=== PATIENT | female | born 1985 | race Caucasian/White ===

== ENCOUNTER → 2019-02-01 13:44 | Outpatient (CLI) | payer OTHER, SELFPAY ==
--- NOTE | 2019-02-01 13:48 | US_ITS ---
US gallbladder Ordering Physician: Terry Bush MD Patient Age: 33 years: Female HISTORY: ITS.REASON: RUQ PAIN TECHNIQUE: Ultrasound right upper quadrant COMPARISON : FINDINGS Pancreas. Unremarkable. The head body and medial tail of pancreas well visualized and appears satisfactory Liver. No focal lesions. No biliary ductal dilatation. Portal vein and hepatic veins survey unremarkable. Gallbladder. Multiple gallstones. These measure generally 5-6 mm in size. No wall thickening. Common duct appears normal. 3 mm at hilum of the liver Right kidney appears normal measuring 8.3 cm in length. No hydronephrosis nor mass. IMPRESSION: Cholelithiasis Multiple gallstones along the dependent portion gallbladder Common duct normal
== END ==
PROVIDERS: PCP Internal Medicine Adolescent Medicine; Visit Provider Internal Medicine Adolescent Medicine
DX: R10.11 Right upper quadrant pain (principal)
CPT/HCPCS: 76705

== ENCOUNTER → 2019-11-08 07:35 | Outpatient (CLI) | payer OTHER, SELFPAY ==
[2019-11-08 09:11] LABS: Basophils # 0.1 K/mm3 (0-0.2); Basophils % 1.1 % (0.1-2.0); Eosinophils # 0.4 K/mm3 (0.0-0.4); Eosinophils % 7.2 % (0.1-12.0); Hematocrit 37.1 % (37.0-47.0); Hemoglobin 11.8 g/dL (12.2-16.2); Lymphocytes # 1.7 K/mm3 (0.7-4.5); Lymphocytes % 34.9 % (10-50); Mean Corpuscular Hemoglobin 28.9 pg (27.0-31.2); Mean Corpuscular Volume 90.5 fl (81-99); Mean Platelet Volume 7.7 fl (7.4-10.4); Monocytes # 0.3 K/mm3 (0.1-1.0); Neutrophils # 2.6 K/mm3 (1.8-7.8); Neutrophils % 51.7 % (37.0-80.0); Platelet Count 233 K/mm3 (142-424); Red Cell Distribution Width 12.3 % (11.5-17.5)
[2019-11-08 09:57] LABS: Chloride 104 mmol/L (98-107); Sodium 140 mmol/L (136-145)
[2019-11-08 10:00] LABS: Alanine Aminotransferase 18 U/L (12-78); Aspartate Amino Transferase 27 U/L (14-36); Bilirubin,Total 0.4 mg/dl (0.2-1.3); Blood Urea Nitrogen 12 mg/dl (7-17); Carbon Dioxide 25 mmol/L (22.0-30.0); Cholesterol 197 mg/dl (140-200); Estimated Glomerular Filt Rate 82 ml/min (>60); GFR (African American) 99 ML/MIN (>60); Triglycerides 61 mg/dl (30-150); VLDL Cholesterol 12 mg/dL (0-40)
[2019-11-08 10:01] LABS: Albumin Level 4.3 g/dl (3.5-5.0); Albumin/Globulin Ratio 1.5 (1.1-1.8); Alkaline Phosphatase 45 U/L (38-126); Calcium 9.3 mg/dl (8.4-10.2); Chol/HDL Ratio 2.8 (1-3.5); Globulin 2.9 g/dL (1.3-3.2); Glucose 84 mg/dl (74-100); HDL Cholesterol 71 mg/dl (40-60); Total Protein,Serum 7.2 g/dl (6.3-8.2)
[2019-11-08 10:13] LABS: Direct LDL Cholesterol 103.01 mg/dL (100-129)
[2019-11-08 10:16] LABS: Free T4 (Free Thyroxine) 0.73 ng/dl (0.78-2.19)
[2019-11-08 10:30] LABS: Thyroid Stimulating Hormone 2.85 uIU/mL (0.465-4.68)
[2019-11-09 06:00] LABS: Thyroid Peroxidase Antibodies <9 IU/mL (0-34)
[2019-11-09 08:32] LABS: Estradiol 49.4 pg/mL (.); Progesterone 0.2 ng/mL (.); Triiodothyronine (T3) Free 2.7 pg/mL (2.0-4.4); Vitamin D 25 Hydroxy 18.3 ng/mL (30.0-100.0)
[2019-11-09 11:34] LABS: Vitamin B12 696 pg/mL (232-1245)
[2019-11-12 11:28] LABS: Thyroglobulin IMA CHARGE YES; Thyroglobulin Level <1.0 IU/mL (0.0-0.9)
[2019-11-13 02:08] LABS: Testosterone, Total, LC/MS 23.2 ng/dL (10.0-55.0)
[2019-11-13 10:56] LABS: Testosterone,Free 2.1 pg/mL (0.0-4.2)
[2019-11-13 16:12] LABS: Anti Mullerian Hormone (AMH) 1.65 ng/mL (.)
== END ==
PROVIDERS: Visit Provider Nurse Practitioner Adult Health
DX: E34.9 Endocrine disorder, unspecified (principal); F41.1 Generalized anxiety disorder; F32.9 Major depressive disorder, single episode, unspecified; J30.9 Allergic rhinitis, unspecified; R53.83 Other fatigue; D64.9 Anemia, unspecified; N92.0 Excessive and frequent menstruation with regular cycle; R68.89 Other general symptoms and signs; K59.00 Constipation, unspecified; E66.3 Overweight; E55.9 Vitamin D deficiency, unspecified; Z13.29 Encounter for screening for other suspected endocrine disorder; Z13.220 Encounter for screening for lipoid disorders
CPT/HCPCS: 36415; 80053; 80061; 82397; 82607; 82652; 82670; 84144; 84402; 84403; 84439; 84443; 84481; 85025; 86376; 86800

== ENCOUNTER 2019-11-14 08:00 | Outpatient (RCR) | payer OTHER, SELFPAY ==
--- NOTE | 2019-11-12 09:18 | HMH.PTOPEV ---
PT Outpatient Evaluation Rehab PT Outpatient Evaluation Start: 11/12/19 08:13 Freq: Status: Active Protocol: Document 11/12/19 08:29 ARLENE (Rec: 11/12/19 09:18 DEVANJOSEPHINE [id number]) Electronically Signed By Jaime Cerrato PT 11/12/19 08:29 Outpatient Therapy Subjective History Subjective History This is the initial Physical Therapy evaluation for Alondra Mars. Pt is a 34 y/o femle referred to PT for c /o R knee pain. Pt reports insidious onset of pain ~ 2 years ago while working out . Pt reports pain is intermittant and only occurs mostly w/ weightlifting exercises. Pt reports she notices it w/ OKC exercises or weighted squats, stairs and standing from low stool do not bother it. Chief Complaint Pain Symptom Type Ache,Throb,Sharp Symptoms Relieved By Rest/Positioning Symptoms Aggravated By Physical Activity Prior Functional Limitations None Current Functional Limitations Squatting,Recreation Activity Symptom Description Intermittent Level of pain today (0-10) 0 Pain scale - at its best (0-10) 0 Pain scale - at its worst (0-10) 5 Lumbopelvic Eval Special Tests Hip Navi (ALANNA) Test Negative Right,Positive Left Hip/Knee Eval Gait Observation General Gait Pattern Observation No Deviations/Normal Assistive Device Assistive Devices None / NA Palpation Tenderness right Knee Palpation Finding Tenderness Knee Palpation Overall Comment TTP post patella MMT Hip Flexion Strength Grade 5 Normal Hip Abduction Strength Grade 5 Normal Hip Adduction Strength Grade 5 Normal Hip External Rotation Strength Grade 5 Normal Hip Internal Rotation Strength Grade 5 Normal Knee Extension Strength Grade 5 Normal Knee Flexion Strength Grade 5 Normal ROM left Hip External Rotation Active Range of 15 Motion (degrees) right Hip External Rotation Active Range of 45 Motion (degrees) Hip ROM Limitations Soft Tissue Tightness Knee ROM Reason Not Measured Within Functional Limits Special Tests Hip Scouring (Quadrant) Test Negative Left,Negative Right Knee Apprehension Test Negative Left,Negative Right Knee Apley Compression Test Negative Left,Negative Right Knee Anterior Drawer Test Negative Left,Negative Right Knee Anterior Alfredo Test Negative Left,Negative Right Knee Valgus Stres
== END 2019-11-14 09:00 | disposition home or self-care (01) ==
LOC: PT 08:00
PROVIDERS: PCP Internal Medicine Adolescent Medicine; Visit Provider Nurse Practitioner Family
DX: M25.561 Pain in right knee (principal)
CPT/HCPCS: 97110; 97163

== ENCOUNTER → 2020-10-30 10:48 | Outpatient (CLI) | payer OTHER, SELFPAY ==
[2020-10-30 11:20] LABS: Basophils % 0.2 % (0.1-2.0); Eosinophils # 0.1 K/mm3 (0.0-0.4); Eosinophils % 1.3 % (0.1-12.0); Hemoglobin 13.1 g/dL (12.2-16.2); Lymphocytes # 1.6 K/mm3 (0.7-4.5); Lymphocytes % 19.7 % (10-50); Mean Corpuscular HGB Conc 32.1 g/dL (31.8-35.4); Mean Corpuscular Hemoglobin 29.8 pg (27.0-31.2); Mean Corpuscular Volume 92.9 fl (81-99); Mean Platelet Volume 7.4 fl (7.4-10.4); Monocytes # 0.3 K/mm3 (0.1-1.0); Monocytes % 4.1 % (1.7-9.3); Neutrophils # 6.2 K/mm3 (1.8-7.8); Neutrophils % 74.8 % (37.0-80.0); Platelet Count 268 K/mm3 (142-424); Red Blood Count 4.41 M/mm3 (4.20-5.40); Red Cell Distribution Width 12.3 % (11.5-17.5); White Blood Count 8.2 K/mm3 (4.8-10.8)
[2020-10-30 13:34] LABS: Chloride 105 mmol/L (98-107); Sodium 140 mmol/L (136-145)
[2020-10-30 13:35] LABS: Potassium 4.3 mmoL/L (3.5-5.1)
[2020-10-30 13:37] LABS: Alanine Aminotransferase 21 U/L (12-78); Albumin Level 4.6 g/dl (3.5-5.0); Albumin/Globulin Ratio 1.3 (1.1-1.8); Alkaline Phosphatase 71 U/L (38-126); Anion Gap 11.3 mEq/L (5-15); Aspartate Amino Transferase 25 U/L (14-36); Bilirubin,Total 0.4 mg/dl (0.2-1.3); Blood Urea Nitrogen 13 mg/dl (7-17); Calcium 9.7 mg/dl (8.4-10.2); Carbon Dioxide 28 mmol/L (22.0-30.0); Estimated Glomerular Filt Rate 82 ml/min (>60); GFR (African American) 99 ML/MIN (>60); Globulin 3.5 g/dL (1.3-3.2); Glucose 73 mg/dl (74-100); Total Protein,Serum 8.1 g/dl (6.3-8.2)
== END ==
PROVIDERS: Visit Provider Internal Medicine Adolescent Medicine
DX: T78.40XA Allergy, unspecified, initial encounter (principal)
CPT/HCPCS: 36415; 80053; 83520; 85025

== ENCOUNTER 2021-03-21 06:52 | Emergency (ER) | payer OTHER, SELFPAY ==
[2021-03-21 06:54] VITALS: BP 121/85; PULSE 69; RESP 18; TEMP 36.9; O2SAT 97; BMI 23.9
[2021-03-21 06:57] VITALS: BMI 18.6
--- NOTE | 2021-03-21 06:58 | CT_ITS ---
PROCEDURE INFORMATION: Exam: CT Abdomen And Pelvis With Contrast Exam date and time: 03/21/2021 6:58 AM Age: 36 years old Clinical indication: Abdominal pain; Localized; Patient HX: Upper abdomen pain since last night , PT knows she has gallstones; Additional info: Upper abd pain TECHNIQUE: Imaging protocol: Computed tomography of the abdomen and pelvis with contrast. Radiation optimization: All CT scans at this facility use at least one of these dose optimization techniques: automated exposure control; mA and/or kV adjustment per patient size (includes targeted exams where dose is matched to clinical indication); or iterative reconstruction. Contrast material: ISOVUE; Contrast volume: 75 ml; Contrast route: IV; Other contrast: Oral; COMPARISON: GB US gallbladder 02/01/2019 3:19 PM FINDINGS: Pleural spaces: No acute airspace or pleural disease. Liver: No focal hepatic mass. Gallbladder and bile ducts: Cholelithiasis. No biliary ductal dilatation. Pancreas: Pancreatic fullness, without focal mass or ductal dilatation. Spleen: No splenomegaly. Adrenal glands: Unremarkable adrenals. Kidneys and ureters: Normal renal morphology. No hydronephrosis. Stomach and bowel: Mild wall thickening in the nondistended gastric antrum and left colon. Small bowel wall thickening, in a pattern of enteritis. Diverticula, without pericolonic inflammation. Appendix: Appendix not visualized. Intraperitoneal space: Small quantity of intraperitoneal fluid. Vasculature: Normal caliber of the abdominal aorta. Lymph nodes: Subcentimeter lymph nodes. Urinary bladder: Normal bladder morphology. Reproductive: Endocervical air. Bones/joints: Well corticated 12 mm ossific density about the anterolateral aspect of the right acetabulum. Schmorl's nodes and marginal osteophytes. IMPRESSION: 1. Small bowel wall thickening, in a pattern of enteritis. 2. Cholelithiasis. 3. Small quantity of intraperitoneal fluid. 4. Mild wall thickening in the nondistended gastric antrum and left colon.
[2021-03-21 07:21] LABS: Microscopic, Urine URINE MICROSCOPIC (MICROSCOPIC)
[2021-03-21 07:23] LABS: Basophils # 0.1 K/mm3 (0-0.2); Basophils % 0.9 % (0.1-2.0); Eosinophils # 0.2 K/mm3 (0.0-0.4); Eosinophils % 1.6 % (0.1-12.0); Hematocrit 42.4 % (37.0-47.0); Hemoglobin 13.8 g/dL (12.2-16.2); Lymphocytes % 28.8 % (10-50); Mean Corpuscular HGB Conc 32.5 g/dL (31.8-35.4); Mean Corpuscular Hemoglobin 28.4 pg (27.0-31.2); Mean Corpuscular Volume 87.5 fl (81-99); Mean Platelet Volume 7.3 fl (7.4-10.4); Monocytes # 0.4 K/mm3 (0.1-1.0); Monocytes % 3.9 % (1.7-9.3); Neutrophils # 6.7 K/mm3 (1.8-7.8); Neutrophils % 64.8 % (37.0-80.0); Platelet Count 351 K/mm3 (142-424); Red Blood Count 4.84 M/mm3 (4.20-5.40); Red Cell Distribution Width 12.6 % (11.5-17.5); White Blood Count 10.4 K/mm3 (4.8-10.8)
[2021-03-21 07:23] LABS: Appearance,Urine TURBID (Clear); Bilirubin,Urine Negative (Negative); Blood, Urine 3+ (Negative); Color,Urine ORANGE (Yellow); Glucose,Urine (UA) Negative (Negative); Ketones,Urine Negative (Negative); Leukocyte Esterase,Urine Negative (Negative); Nitrate,Urine Negative (Negative); PH,Urine 7.5 (5.0-8.5); Protein,Urine 1+ (Negative); Urobilinogen,Urine 0.2 EU/dl (0.2)
[2021-03-21 07:27] LABS: Urine Pregnancy, HCG Qual. Negative (Negative)
[2021-03-21 07:31] LABS: Alanine Aminotransferase 27 U/L (12-78); Albumin Level 4.4 g/dl (3.5-5.0); Albumin/Globulin Ratio 1.3 (1.1-1.8); Alkaline Phosphatase 70 U/L (38-126); Amylase 81 U/L (30-110); Anion Gap 13.6 mEq/L (5-15); Aspartate Amino Transferase 30 U/L (14-36); Bilirubin,Total 0.5 mg/dl (0.2-1.3); Blood Urea Nitrogen 12 mg/dl (7-17); Calcium 8.7 mg/dl (8.4-10.2); Carbon Dioxide 29 mmol/L (22.0-30.0); Chloride 99 mmol/L (98-107); Creatinine Clearance Estimated 71 mL/min (50-200); Estimated Glomerular Filt Rate 71 ml/min (>60); GFR (African American) 86 ML/MIN (>60); Globulin 3.3 g/dL (1.3-3.2); Glucose 106 mg/dl (74-100); Lactic Acid 0.8 mmol/L (0.7-2.1); Lipase 105 U/L (23-300); Potassium 3.6 mmoL/L (3.5-5.1); Sodium 138 mmol/L (136-145); Total Protein,Serum 7.7 g/dl (6.3-8.2)
[2021-03-21 07:33] LABS: Amorphous Sediment,Urine 2+ /lpf; RBC,Urine TNTC #/hpf (0-3); Squamous Epithelial Cell,Urine Occasional #/hpf (0-5)
[2021-03-21 07:36] LABS: C-Reactive Protein 1.6 mg/L (0-4)
--- NOTE | 2021-03-21 07:46 | PC.NURSE ---
Radiology notified of patient finishing oral contrast at [id number]
[2021-03-21 07:50] LABS: Erythrocyte Sedimentation Rate 12 mm/hr (0-20)
[2021-03-21 07:54] VITALS: BP 135/71; PULSE 77; RESP 18; O2SAT 98
[2021-03-21 07:54] LABS: Procalcitonin < 0.030 ng/mL (0.0-2.0)
--- NOTE | 2021-03-21 08:21 | HMH.EDABDPAI ---
ED Disposition Clinical Impression: Gastroenteritis Disposition: Home, Self-Care Condition on Discharge: Good Instructions: DI for Acute Abdominal Pain Additional Instructions: Please take medication as prescribed. Please drink plenty of fluids. Please follow-up with the general surgeon for further management of your gallstones. Prescriptions: Ondansetron [Zofran 4mg ODT] 4 mg PO TIDP PRN #8 tab PRN Reason: Nausea Prescription Printed Referrals: Terry Bush MD [Primary Care Provider] - Mark Bell MD [Staff Physician] - - Critical Care Critical Care Time: No Attestation: On 03/21/21, the high probability of a clinically significant, sudden or life threatening deterioration of the following system(s) required my full and direct attention, intervention and personal management. The time I documented below is in addition to time spent performing reported procedures but includes the following listed in this critical care notation. Medical Decision Making - Medical Records Medical records reviewed: Yes: I reviewed the patient's medical records. - Raymundo Inquiry Pt receiving controlled substance: No Vital Signs: 03/21/21 06:54 03/21/21 07:54 Temperature 98.4 F Temperature Source Oral Pulse Rate 77 Pulse Rate [Right] 69 Respiratory Rate 18 18 Blood Pressure 135/71 Blood Pressure [Right Arm] 121/85 Blood Pressure Mean [Right Arm] 97 02 Sat by Pulse Oximetry 97 98 Oxygen Delivery Method Room Air Room Air - Lab Data Lab Results 03/21/21 07:04: Urine Color [place], Urine Appearance Turbid, Urine pH 7.5, Ur Specific [place] 1.020, Urine Protein 1+, Urine Glucose (UA) Negative, Urine Ketones Negative, Urine Blood 3+, Urine Nitrate Negative, Urine Bilirubin Negative, Urine Urobilinogen 0.2, Ur Leukocyte Esterase Negative, Urine RBC Tntc, Urine WBC None, Ur Squamous Epith Cells Occasional, Amorphous Sediment 2+, Urine Bacteria None 03/21/21 07:04: Urine HCG, Qual Negative 03/21/21 07:05: WBC 10.4, RBC 4.84, Hgb 13.8, Hct 42.4, MCV 87.5, MCH 28.4, MCHC 32.5, RDW 12.6, Plt Count 351, MPV 7.3 L, Neut % (Auto) 64.8, Lymph % (Auto) 28.8, [place] % (Auto) 3.9, Eos % (Auto) 1.6, Baso % (Auto) 0.9, Neut # (Auto) 6.7, Lymph # (Auto) 3.0, [place] # (Auto) 0.4, Eos # (Auto) 0.2, Baso # (Auto) 0.1, ESR 12 03/21/21 07:05: Sodium 138, Potassium 3.6, Chloride 99, Carbon Dioxide 29, Anion Gap 13.6, BUN 12, Creatinine 0.90, Estimated Creat Clear 71, Estimated GFR 71, Est GFR ( Amer) 86, Glucose 106 H, Calcium 8.7, Total Bilirubin 0.5, AST 30, ALT 27, Alkaline Phosphatase 70, C-Reactive Protein 1.6, Total Protein 7.7, Albumin 4.4, Globulin 3.3 H, Albumin/Globulin Ratio 1.3, Amylase 81, Lipase 105, Procalcitonin < 0.030 03/21/21 07:05: Lactate 0.8 Result diagrams: 03/21/21 07:05 03/21/21 07:05 Orders (Tests/Meds): ED MEDICATIONS Generic Name Dose Route Start Last Admin Trade Name Freq PRN Reason Stop Dose Admin Sodium Chloride 10 ml 03/21/21 09:28 03/21/21 09:29 Sodium Chloride 0.9% 10ml Syr (Rad Only) IV 04/20/21 09:27 10 ml NEEDED PRN Administration Maintain IV Site Discontinued Medications Generic Name Dose Route Start Last Admin Trade Name Freq PRN Reason Stop Dose Admin Diatrizoate Meglum/Diatrizoate Sod 30 ml 03/21/21 07:01 03/21/21 07:20 Diatrizoate Michelle 66% & Diatrizoate Na 10% 30ml Udc PO 03/21/21 07:02 30 ml ONCE ONE Administration Famotidine 20 mg 03/21/21 06:58 03/21/21 07:20 Famotidine 20mg/2ml Vial IV 03/21/21 06:59 20 mg ONCE ONE Administration Sodium Chloride 1,000 mls @ 999 mls/hr 03/21/21 07:00 03/21/21 07:21 Sod Chlor 0.9% 1000ml Bag IV 03/21/21 08:00 999 mls/hr .Q1H1M DARYL Administration Iopamidol 100 ml 03/21/21 09:28 03/21/21 09:29 Iopamidol-250 (51%) 100ml Bot IV 03/21/21 09:29 100 ml ONCE ONE Administration Ketorolac Tromethamine 30 mg 03/21/21 06:58 03/21/21 07:20 Ketorolac 30mg/Ml Vial IV 03/21/21 06
[2021-03-21 10:15] VITALS: BP 128/78; PULSE 76; RESP 18; TEMP 36.8; O2SAT 98
== END 2021-03-21 10:27 | disposition home or self-care (01) ==
PROVIDERS: Emergency Medicine; Emergency Provider Emergency Medicine; PCP Internal Medicine Adolescent Medicine
DX: K52.9 Noninfective gastroenteritis and colitis, unspecified (principal); F41.8 Other specified anxiety disorders
CPT/HCPCS: 74177; 80053; 81001; 81025; 82150; 83605; 83690; 84145; 85025; 85651; 86140; 96365; 99283; J2405; Q9966

== ENCOUNTER → 2021-04-21 12:43 | Outpatient (CLI) | payer OTHER, SELFPAY ==
[2021-04-21 18:22] LABS: Urine Pregnancy, HCG Qual. Negative (Negative)
== END ==
PROVIDERS: Visit Provider Surgery
DX: Z01.812 Encounter for preprocedural laboratory examination (principal); Z11.52 Encounter for screening for COVID-19; K80.10 Calculus of gallbladder with chronic cholecystitis without obstruction
CPT/HCPCS: 81025; U0003

== ENCOUNTER 2021-04-23 10:33 | Day surgery (SDC) | payer OTHER, SELFPAY ==
[2021-04-21 11:19] VITALS: BMI 23.0
[2021-04-23] VITALS (11 sets, daily range): BP systolic 102–131; BP diastolic 49–82; PULSE 67–82; RESP 12–18; TEMP 36.2–43; O2SAT 99–100
--- NOTE | 2021-04-23 13:41 | P.PN_ITS ---
[facility] Anesthesia Checklist - Structural Data Admitted From: Home Planned Operative Procedure/s: allyson arias Consent for Planned Operative Procedure(s) Verified: Yes - Airway Assessment C-Spine Mobility Assessed: Yes TMJ Mobility Assessed: Yes Dentition: Good Dentition - Neurological Assessment Level of Consciousness: Awake, Alert, Appropriate - Anesthesia Plan Anesthesia Risk discussed: Yes Anesthesia Plan: Verified ASA Class: I Anesthesia Type: General [facility] History I have reviewed the patient's past medical history: Yes Medical History: Reports:: Anxiety, Depression Denies:: Cancer, Diabetes Mellitus Type 1, Diabetes Mellitus Type 2, MRSA, Seizures *Have you ever received a pneumonia vaccine?: No *Have you received a flu vaccine this season?: Yes Anesthesia experience/problems:: none Other Surgeries: Yes: No Previous Surgery Amputation: No Fractures: No - *Social History Last grade of school completed: Advanced degree Smoking Status: Never smoker Alcohol Intake: never Substance Use Type: denies use *Occupational Status:: employed Housing: house Household Members: children *Travel in the last 8 weeks: None - Psychiatric History Pschychiatric History:: Reports:: Anxiety, Depression Family Hx:: No significant family history
--- NOTE | 2021-04-23 13:51 | P.OP_ITS ---
Date of procedure: 04/23/21 Pre-op Diagnosis:: Chronic calculus cholecystitis Post-op Diagnosis:: Same Procedure performed:: Laparoscopic cholecystectomy Surgeon:: Mark Bell MD [employer]INTED [employer] PANELS TRIMMER:: Live Hirsch Anesthesia: GETA Estimated blood loss (mL): 15 Operative findings:: Adhesions between liver and anterior abdominal wall Pericholecystic adhesions Infundibular thickening Operative note:: After informed consent was obtained, the patient was taken to the operating room and placed in the supine position. General anesthesia was induced and the abdomen was prepped and draped in a sterile fashion. After infiltration with local anesthetic an infraumbilical incision was made. A Veress needle was placed in position. The abdomen was insufflated. A 5 mm optical trocar was placed in position. Under direct visualization, a 12 mm trocar was placed in the subxiphoid position and 2 additional 5 mm trocars were placed in the right upper quadrant. Evaluation revealed multiple adhesions between the anterior liver margin and abdominal wall/peritoneum. These adhesions were carefully taken down with harmonic hailey. The gallbladder was elevated up and over the liver margin. The tissue around the cystic duct was carefully dissected. 3 clips were placed proximally and the duct was transected with harmonic hailey. Harmonic hailey were then utilized to dissect the gallbladder away from the liver margin with careful attention to the control of the cystic artery. The gallbladder was placed in a retrieval bag and removed through the subxiphoid trocar site. The right upper quadrant was thoroughly irrigated. No active bleeding or bile leak was noted. Fascia at the subxiphoid trocar site was reapp roximated utilizing the NeoClose device. The remaining trocars were removed. All wounds were irrigated and skin was closed with 4-0 Monocryl in a subcuticular fashion. Steri-Strips were applied. The patient's anesthetic agents were reversed and extubation was completed prior to transfer to recovery in stable condition. Condition: stable Disposition: PACU Specimens:: Gallbladder and contents Complications:: No immediate
--- NOTE | 2021-04-23 14:03 | HMH.ANESI ---
[facility] Anesthesia Record Part I Intake, IV Amount: 1,500 Estimated blood loss (mL): 0 Urine output (mL): 0 Blood Pressure: 118/78 SaO2: 99 Pulse Rate: 76 Respiratory Rate: 12 Temperature: 98.1 F Patient is:: Awake, Stable Stable to PACU at:: 14:00
[2021-04-26 07:50] VITALS: BP 105/69; PULSE 82; TEMP 36.8
--- NOTE | 2021-04-26 07:50 | HMH.ANESII ---
[facility] Anesthesia Record Part II Discharge Time: 14:40 Destination: Surgical Day Care (OP Surgery) PACU nurse assessment reviewed?: Yes Patient Condition:: Good Anesthesia Complications:: None Swallowing reflex intact?: Yes Cyanosis?: No Blood Pressure: 105/69 Pulse Rate: 82 Temperature: 98.2 F Mental Status: Alert & Oriented Pain level:: 2 Nausea and/or vomitting:: None Intake, IV Amount: 0
== END 2021-04-23 15:15 | disposition home or self-care (01) ==
LOC: OR 10:34
PROVIDERS: PCP Internal Medicine Adolescent Medicine; Visit Provider Surgery
PROC: 0FT44ZZ Resection of Gallbladder, Percutaneous Endoscopic Approach (ICD-10-PCS; CPT 47562; principal; 2021-04-23 12:00)
DX: K80.10 Calculus of gallbladder with chronic cholecystitis without obstruction (principal); K82.8 Other specified diseases of gallbladder; F41.9 Anxiety disorder, unspecified; F32.9 Major depressive disorder, single episode, unspecified; Z79.899 Other long term (current) drug therapy
CPT/HCPCS: 47562; 96374; J2405; J2710

== ENCOUNTER 2021-08-06 09:51 | Emergency (ER) | payer OTHER, SELFPAY ==
[2021-08-06 10:35] VITALS: BP 125/81; PULSE 95; RESP 20; TEMP 36.6; O2SAT 100; BMI 23.0
--- NOTE | 2021-08-06 11:09 | HMH.EDUTC ---
[facility] [place] Clinical Impression: Urticaria Disposition: Home, Self-Care Condition on Discharge: Good Instructions: Hives, DI for Hives, DI for General Allergic Reactions Additional Instructions: Try to identify and avoid contact with the offending substance. Don't start the oral steroids (prednisone pack) until tomorrow. Follow up with your regular doctor. Follow up with your online marketing manager. GO TO THE ER FOR ANY WORSENING SYMPTOMS OR CONCERNS Prescriptions: predniSONE [Prednisone 10mg Tab Dose-Pack] 1 pack PO DIRECTED 10 Days #1 packet Transmission Status: Received by [employer] Referrals: Terry Bush MD [Primary Care Provider] - Forms: Work/School Release Time of Disposition: 11:12 Medical Decision Making - Medical Records Medical records reviewed: No: I reviewed the patient's medical records. - Raymundo Inquiry Pt receiving controlled substance: No Vital Signs: 08/06/21 10:35 08/06/21 11:11 Temperature 97.8 F 97.8 F Temperature Source Oral Pulse Rate 95 H Pulse Rate [Right Brachial] 95 H Respiratory Rate 20 20 Blood Pressure 125/81 Blood Pressure [Right Arm] 125/81 Blood Pressure Mean [Right Arm] 95 Blood Pressure Source [Right Arm] Automatic Cuff Blood Pressure Position [Right Arm] Sitting 02 Sat by Pulse Oximetry 100 Oxygen Delivery Method Room Air Orders (Tests/Meds): ED MEDICATIONS Discontinued Medications Generic Name Dose Route Start Last Admin Trade Name Freq PRN Reason Stop Dose Admin Methylprednisolone Sodium Succinate 125 mg 08/06/21 10:59 08/06/21 11:04 Methylprednisolone Sod Succ 125mg Vial IM 08/06/21 11:00 125 mg ONCE ONE Administration [facility] [place] - General Stated complaint: hives Time Seen by Provider: 08/06/21 10:45 Mode of Arrival: Ambulatory Source of Information: Patient Limitations: No Limitations Description of Symptoms (Recalled from Triage Doc. by RN): PATIENT C/O RASH/HIVES X 3 DAYS. STATES THEY ARE CHRONIC AND SHE IS HAVING A FLARE-UP HEENT Symptoms (Recalled from RN notes): No Resp Symptoms (Recalled from RN notes): No Skin Symptoms (Recalled from RN notes): Yes MS Symptoms (Recalled from RN notes): No Functional Status (Recalled from RN notes): WNL - History of Present Illness Provider Complaint: She has a history of getting idiopathic hives. She is having an episode now that started yesterday. - Related Data Home Medications Medication Instructions Recorded Confirmed bupropion HCl 150 mg 24 hr tablet, 150 mg PO DAILY tab 11/19/19 08/06/21 extended release Ferrous Sulfate [Iron 325mg Tab] 325 mg PO DAILY 04/21/21 08/06/21 Previous Rx's Medication Instructions Recorded predniSONE [Prednisone 10mg Tab 1 pack PO DIRECTED 10 Days #1 08/06/21 Dose-Pack] packet Allergies Allergy/AdvReac Type Severity Reaction Status Date / Time No Known Allergies Allergy Verified 05/11/21 08:51 - Worker's Comp Is this a Worker's Comp case?: No [facility] History - Hepatitis A Screen Drug use history?: No High risk sexual behaviors?: No History of sexually transmitted infection?: No Currently employed?: No Childcare worker?: No Do you have indoor plumbing?: Yes Do you have electricity?: Yes Attestation statement:: This patient has been screened for Hepatitis A risk factors. I have reviewed the patient's past medical history: Yes Medical History: Reports:: Anxiety, Depression Denies:: Cancer, Diabetes Mellitus Type 1, Diabetes Mellitus Type 2, MRSA, Seizures Other Surgeries: Yes: No Previous Surgery, Cholecystectomy Amputation: No Fractures: No - Social History Smoking Status: Never smoker Alcohol Intake: never Substance Use Type: denies use Occupational Status: employed Housing: house Household Members: children - Psychiatric History Pschychiatric History:: Reports:: Anxiety, Depression Family Hx:: No significant family history ROS Obtained: Yes All systems review
[2021-08-06 11:11] VITALS: BP 125/81; PULSE 95; RESP 20; TEMP 36.6; O2SAT 100
== END 2021-08-06 11:17 | disposition home or self-care (01) ==
PROVIDERS: Emergency Provider Nurse Practitioner Family; PCP Internal Medicine Adolescent Medicine
DX: L50.9 Urticaria, unspecified (principal); F41.8 Other specified anxiety disorders
CPT/HCPCS: 96372; 99202; G0463

== ENCOUNTER → 2021-10-12 08:04 | Outpatient (CLI) | payer OTHER, SELFPAY ==
[2021-10-12 20:50] LABS: Covid-19 Nasal PCR Sendout Lex POSITIVE
== END ==
PROVIDERS: PCP Internal Medicine Adolescent Medicine; Visit Provider Nurse Practitioner
DX: U07.1 COVID-19 (principal)
CPT/HCPCS: C9803; U0004; U0005

== ENCOUNTER 2022-03-29 12:31 | Emergency (ER) | payer OTHER, SELFPAY ==
[2022-03-29 14:30] VITALS: BP 116/81; PULSE 62; RESP 18; TEMP 36.5; O2SAT 98; BMI 20.3
--- NOTE | 2022-03-29 15:02 | HMH.EDUTC ---
[facility] [place] Impression: Rash and nonspecific skin eruption Disposition: Home, Self-Care Condition on Discharge: Good Instructions: Summertime Rashes: Poison Wendy, [place], and [place], DI for Poison Wendy Allergy, DI for Rash Additional Instructions: Over the counter Benadryl may help with itching Oatmeal bathes may help to soothe the skin and clear the rash Calamine lotion may help to dry the rash Return if needed Start oral steriods tomorrow Prescriptions: predniSONE [Prednisone 10mg Tab Dose-Pack] 10 mg PO UD DOSE PK 6 Days #21 tab Transmission Status: Received by [facility] Referrals: Terry Bush MD [Primary Care Provider] - As needed Time of Disposition: 15:10 Medical Decision Making - Raymundo Inquiry Pt receiving controlled substance: No Raymundo was queried for this patient: No Vital Signs: 03/29/22 14:30 03/29/22 15:05 Temperature 97.7 F 97.7 F Temperature Source Oral Pulse Rate 62 Pulse Rate [Left Brachial] 62 Respiratory Rate 18 18 Blood Pressure 116/81 Blood Pressure [Left Arm] 116/81 Blood Pressure Mean [Left Arm] 92 Blood Pressure Source [Left Arm] Automatic Cuff Blood Pressure Position [Left Arm] Sitting 02 Sat by Pulse Oximetry 98 Oxygen Delivery Method Room Air Orders (Tests/Meds): ED MEDICATIONS Discontinued Medications Generic Name Dose Route Start Last Admin Trade Name Malika PRN Reason Stop Dose Admin Methylprednisolone Sodium Succinate 125 mg 03/29/22 14:53 03/29/22 15:05 Methylprednisolone Sod Succ 125mg Vial IM 03/29/22 14:54 125 mg ONCE ONE Administration Medical Decision Narrative: Patient denies [facility] [place] - General Stated complaint: rash on neck arms stomach Time Seen by Provider: 03/29/22 14:30 Mode of Arrival: Ambulatory Source of Information: Patient Limitations: No Limitations Description of Symptoms (Recalled from Triage Doc. by RN): PATIENT C/O RASH ALL OVER BODY HEENT Symptoms (Recalled from RN notes): No Resp Symptoms (Recalled from RN notes): No Skin Symptoms (Recalled from RN notes): Yes MS Symptoms (Recalled from RN notes): No Functional Status (Recalled from RN notes): WNL - History of Present Illness Provider Complaint: Patient states that they recently cleared some brush and she thinks she may have got into poison wendy or something that she is allergic to something States that rash is all over her neck, face, arms and abdomen - Related Data Home Medications Medication Instructions Recorded Confirmed bupropion HCl 150 mg 24 hr tablet, 150 mg PO DAILY tab 11/19/19 12/09/21 extended release Ferrous Sulfate [Iron 325mg Tab] 325 mg PO DAILY 04/21/21 12/09/21 cetirizine 10 mg tablet 10 mg PO DAILY PRN 12/09/21 12/09/21 Previous Rx's Medication Instructions Recorded etonogestrel 0.12 mg-ethinyl 1 vag ring VAGINAL Q4W #3 each 12/09/21 estradiol 0.015 mg/24 hr vaginal ring predniSONE [Prednisone 10mg Tab 10 mg PO UD DOSE PK 6 Days #21 tab 03/29/22 Dose-Pack] Allergies Allergy/AdvReac Type Severity Reaction Status Date / Time No Known Allergies Allergy Verified 12/09/21 09:31 - Worker's Comp Is this a Worker's Comp case?: No [facility] History - Hepatitis A Screen Attestation statement:: This patient has been screened for Hepatitis A risk factors. I have reviewed the patient's past medical history: Yes Medical History: Reports:: Anxiety, Depression Denies:: Cancer, Diabetes Mellitus Type 1, Diabetes Mellitus Type 2, MRSA, Seizures Other Surgeries: Yes: No Previous Surgery, Cholecystectomy Amputation: No Fractures: No - Social History Smoking Status: Never smoker Alcohol Intake: never Substance Use Type: denies use Occupational Status: employed Housing: house Household Members: children - Psychiatric History Pschychiatric History:: Reports:: Anxiety, Depression Family Hx:: No significant family history ROS Obtained: Yes All systems reviewed & no al
[2022-03-29 15:05] VITALS: BP 116/81; PULSE 62; RESP 18; TEMP 36.5; O2SAT 98
== END 2022-03-29 15:21 | disposition home or self-care (01) ==
PROVIDERS: Emergency Provider Nurse Practitioner; PCP Internal Medicine Adolescent Medicine
DX: R21 Rash and other nonspecific skin eruption (principal)
CPT/HCPCS: 96372; 99212; G0463